=== PATIENT | female | born 1970 | race Caucasian/White ===

== ENCOUNTER 2020-09-04 10:50 | Outpatient (CLI) | payer OTHER | END 2020-09-04 23:59 | disposition home or self-care (01) | LOC: COV 10:50 | PROVIDERS: ATTEND Family Medicine | DX: M79.10 Myalgia, unspecified site (principal); R53.83 Other fatigue; R68.83 Chills (without fever); R07.0 Pain in throat; R09.81 Nasal congestion; J34.89 Other specified disorders of nose and nasal sinuses; R11.2 Nausea with vomiting, unspecified; Z20.822 Contact with and (suspected) exposure to COVID-19 ==

== ENCOUNTER 2020-12-13 14:17 | Outpatient (CLI) | payer OTHER ==
--- NOTE | 2020-12-13 15:38 | XRAY Report ---
PROCEDURE: Foot 3 View RT INDICATIONS: PAIN + EDEMA 2ND DIGIT-2ND MT X 6 MO TECHNIQUE: 3 views of the foot were acquired. COMPARISON: None FINDINGS: Bones: No fractures or dislocations. No suspicious bony lesions. Mild periarticular osteophyte for mation at the first metatarsophalangeal joint. Soft tissues: No tibiotalar joint effusion. Achilles tendon appears normal. IMPRESSION: Osteoarthritis. No acute fracture. No osseous lesion. If symptoms and/or clinical suspicion for patho logy continue, further assessment with repeat plain films, or advanced imaging (e.g., CT, MRI, or bon e scan) is recommended for further assessment. Reviewed by: Freddy Garces MD on 12/13/2020 3:37 PM PDT Approved by: Freddy Garces MD on 12/13/2020 3:37 PM PDT Station ID: [id number]
== END 2020-12-13 14:18 | disposition home or self-care (01) ==
LOC: DI 14:17
PROVIDERS: ATTEND Podiatrist
DX: M19.071 Primary osteoarthritis, right ankle and foot (principal)

== ENCOUNTER 2020-12-25 08:21 | Outpatient (CLI) | payer OTHER ==
--- NOTE | 2020-12-25 15:14 | MRI Report ---
PROCEDURE: Foot RT W/O INDICATIONS: PAIN AND EDEMA 2ND DIGIT TECHNIQUE: Noncontrast coronal and sagittal T1 spin echo and STIR; axial T1 spin echo and T2 fast spin echo with fat saturation through the right foot. COMPARISON: None. FINDINGS: Image quality: Excellent. Bones: Marrow edema is present within the second metatarsal head. No definite articular surface colla pse is seen. There is also periarticular soft tissue edema and second MTP joint effusion. Scattered s ubchondral sclerosis and spurring. No discrete fracture identified. The sesamoids appear within norm al limits. On the comparison radiographs, there is subtle possible flattening of the second metatarsa l head articular surface. Within the fifth metatarsal head, there is marrow signal changes raise the possibility of erosion although technically nonspecific and could be cyst. Soft tissues: Muscle signal intensity grossly normal. The visualized flexor and extensor tendons appe ar grossly intact. IMPRESSION: Second metatarsal head marrow edema and adjacent donte-articular soft tissue edema. Findings are nonsp ecific although could reflect early [place] infraction. Differential includes acute marrow contusion , occult stress fracture or chronic overuse. Infection is probably less likely. Reviewed by: Lokesh Terry MD on 12/25/2020 3:13 PM PDT Approved by: Lokesh Terry MD on 12/25/2020 3:13 PM PDT Station ID: [id number]
== END 2020-12-25 08:22 | disposition home or self-care (01) ==
LOC: DI 08:21
PROVIDERS: ATTEND Podiatrist
DX: M79.671 Pain in right foot (principal); R60.0 Localized edema